=== PATIENT | female | born 1985 | race Caucasian/White ===

== ENCOUNTER 2017-07-28 11:28 | Outpatient (CLI) | payer OTHER ==
[~2017-07-28] VITALS: Ht 167.6 cm; Wt 75.0 kg
[~2017-07-28 11:28] MED LIST: IBUP-1222 PO; OXYC-302 PO
[2017-07-28 11:50] VITALS: BP 110/59
[2017-07-28 11:54] LABS: MICROSCOPIC INDICATED
[2017-07-28] MEDS ORDERED: PREN-3 PO (11:56)
[2017-07-28] MEDS ORDERED: ACET-1600 PO (11:58)
== END 2017-07-28 14:45 | disposition home or self-care (01) ==
LOC: LDOP 11:28
PROVIDERS: ATTEND Obstetrics & Gynecology
DX: O26.892 Other specified pregnancy related conditions, second trimester (principal); R10.13 Epigastric pain; Z3A.27 27 weeks gestation of pregnancy
CPT/HCPCS: 36415; 59025; 81001; 82731; 87086; 99201; G0463

== ENCOUNTER 2017-10-01 20:11 | Outpatient (CLI) | payer OTHER ==
[~2017-10-01] VITALS: Ht 167.6 cm; Wt 79.0 kg
[~2017-10-01 20:11] MED LIST changes: +ACET-1600 PO; +PREN-3 PO
[2017-10-01 20:45] VITALS: BP 117/72
[2017-10-01 21:09] LABS: MICROSCOPIC INDICATED
== END 2017-10-01 21:40 | disposition home or self-care (01) ==
LOC: LDOP 20:11
PROVIDERS: ATTEND Obstetrics & Gynecology
DX: Z34.83 Encounter for supervision of other normal pregnancy, third trimester (principal); Z3A.36 36 weeks gestation of pregnancy
CPT/HCPCS: 59025; 81001; 89060; 99211; G0463; Q0114